=== PATIENT | male | born 1950 | race Asian ===

== ENCOUNTER 2019-07-23 10:13 | Emergency (ER) | payer MEDICARE, BC ==
[~2019-07-23] VITALS: Ht 175.3 cm; Wt 75.0 kg
[2019-07-23 10:32] VITALS: BP 146/80
== END 2019-07-23 11:17 | disposition home or self-care (01) ==
LOC: ER 10:50
DX: Z03.818 Encounter for observation for suspected exposure to other biological agents ruled out (principal); I10 Essential (primary) hypertension; N40.0 Benign prostatic hyperplasia without lower urinary tract symptoms; Z98.890 Other specified postprocedural states
CPT/HCPCS: 99283; U0003